=== PATIENT | male | born 1950 | race Asian ===

== ENCOUNTER → 2017-01-13 | Outpatient (CLI) | payer MEDICARE, BC ==
[~2017-01-13] MED LIST: ALBU8.5H3 INH; AMIO200T2 PO; ASPI-664 PO; LOSA50TA6 PO; METF500T4 PO; METO-407 PO; SERT100T PO; TENO300T2 PO
--- NOTE | 2017-01-14 08:38 | RADRPT ---
PROCEDURE: Right Upper Quadrant Ultrasound. CLINICAL INDICATION: CHRONIC HEP B TECHNIQUE: Multiple real-time images were acquired of the patient's right upper quadrant abdomen a nd retroperitoneum utilizing a high resolution transducer. COMPARISON: Abdominal ultrasound from 04/05/2015 FINDINGS: The liver measures 12.2 cm, and demonstrates normal echogenicity. The main portal vein is patent wit h proper directional flow. There is no intrahepatic biliary ductal dilatation. The extrahepatic comm on bile duct measures 6 mm. The gallbladder is without stones, wall thickening, or pericholecystic fluid. The visualized pancreas is unremarkable. The right kidney measures 8.5 cm and demonstrates normal echotexture. There is no right renal calcul us or hydronephrosis. The visualized abdominal aorta and IVC are grossly unremarkable. IMPRESSION: Unremarkable right upper quadrant abdominal ultrasound. No definite morphologic changes of cirrhosis are identified. The main portal vein is patent with pro per directional flow. RPTAT: EE Physician Annalisa Date Time Electronically viewed and signed by Physician Annalisa on 01/14/2017 08:38 /
== END | disposition home or self-care (01) ==
LOC: U/S 09:34
PROVIDERS: ATTEND Internal Medicine
DX: B18.1 Chronic viral hepatitis B without delta-agent (principal)
CPT/HCPCS: 76705

== ENCOUNTER 2017-03-19 17:03 | Emergency (ER) | END 2017-03-20 19:55 | disposition short-term general hospital (02) ==

== ENCOUNTER → 2018-01-30 | Outpatient (CLI) | END | disposition home or self-care (01) ==

== ENCOUNTER → 2018-06-05 | Outpatient (CLI) | payer MEDICARE, BC ==
[~2018-06-05] MED LIST changes: -ALBU8.5H3 INH; +AMIO100T4 PO; -AMIO200T2 PO; -ASPI-664 PO; +ASPI-817 PO; +LOSA100T15 PO; +LOSA50TA14 PO; -LOSA50TA6 PO; +METF500T24 PO; -METF500T4 PO; +METO-336 PO; -METO-407 PO; +OMEP20CA16 PO; -SERT100T PO; +TENO25TA PO; -TENO300T2 PO
== END | disposition home or self-care (01) ==
LOC: U/S 07:41
PROVIDERS: ATTEND Internal Medicine
DX: B18.1 Chronic viral hepatitis B without delta-agent (principal)
CPT/HCPCS: 76700

== ENCOUNTER 2018-08-22 04:18 | Emergency (ER) | payer MEDICARE, BC ==
[~2018-08-22] VITALS: Ht 160 cm; Wt 135.0 kg
[2018-08-22 04:21] VITALS: Ht 160 cm; Wt 135.0 kg
[2018-08-22] MEDS ORDERED: ONDANSETRON 4 MG INJ IV STA (04:34)
--- NOTE | 2018-08-22 05:13 | ERD ---
ER Documentation Chief Complaint Chief Complaint high BP; took BP meds; N/V; dizziness HPI This is a 68-year-old male who presents for evaluation of hypertension. His took his blood pressure at home which was in the 200s, patient endorses some lightheadedness, associated with nausea, he did not actually have any vomiting. He denies chest pain or shortness of breath, he has had no recent falls, he denies syncope, he has had no confusion. ROS All systems reviewed and are negative except as per history of present illness. Medications Home Meds Reported Medications Aspirin* (Aspirin* EC) 81 Mg Tablet.dr, 81 MG PO DAILY, TAB 03/19/17 Amiodarone Hcl* (Amiodarone Hcl*) 100 Mg Tablet, 100 MG PO DAILY, #30 TAB 03/19/17 Metoprolol Succinate* (Toprol XL*) 100 Mg Tab.sr.24h, 100 MG PO BID, #30 TAB 03/19/17 Metformin Hcl* (Metformin Hcl*) 500 Mg Tablet, 500 MG PO WITH BREAKFAST, #30 TAB 03/19/17 Tenofovir Alafenamide Fumarate (Vemlidy) 25 Mg Tablet, 25 MG PO DAILY, TAB 03/19/17 Omeprazole* (Omeprazole*) 20 Mg Capsule.dr, 20 MG PO DAILY, #30 CAP 03/19/17 Losartan Potassium* (Losartan Potassium*) 100 Mg Tablet, 100 MG PO NEEDED, TAB 03/19/17 Losartan Potassium* (Losartan Potassium*) 50 Mg Tablet, 50 MG PO BID, TAB 03/19/17 Allergies Allergies: Coded Allergies: No Known Drug Allergies (Verified Allergy, Unknown, 03/19/17) PMhx/Soc History of Surgery: Yes Anesthesia Reaction: No Hx Neurological Disorder: No Hx Respiratory Disorders: Yes (asthma) Hx Cardiac Disorders: Yes ([place] April 2012, AICD, HTN) Hx Psychiatric Problems: Yes (depression) Hx Miscellaneous Medical Probl: No Hx Alcohol Use: No Hx Substance Use: No Hx Tobacco Use: No Smoking Status: Never smoker Physical Exam Vitals Vital Signs Date Temp Pulse Resp B/P (MAP) Pulse Ox O2 O2 Flow FiO2 Time Delivery Rate 08/22/18 60 14 153/93 97 Room Air 05:23 (113) 08/22/18 98.0 60 18 196/98 98 04:21 (130) Physical Exam Const: No acute distress Head: Atraumatic Eyes: Normal Conjunctiva ENT: Normal External Ears, Nose and Mouth. Neck: Full range of motion. No meningismus. Resp: Clear to auscultation bilaterally Cardio: Regular rate and rhythm, no murmurs Abd: Soft, non tender, non distended, no rebound or guarding. Normal bowel sounds Skin: No petechiae or rashes Back: No midline or flank tenderness Ext: No cyanosis, or edema Neur: Neuro: M/S: Alert and oriented Face: EOMI, face and pharynx with normal sensation and function Motor: Normal strength throughout Sensation: Normal sensation throughout Speech: Normal Cerebel: Normal coordination Normal gait Normal finger to nose Psych: Normal Mood and Affect Result Diagram: 08/22/1844408/22/18444 Results 24 hrs Laboratory Tests Test 08/22/18 04:45 White Blood Count 7.5 10^3/ul Red Blood Count 4.82 10^6/ul Hemoglobin 15.0 g/dl Hematocrit 43.8 % Mean Corpuscular Volume 90.9 fl Mean Corpuscular Hemoglobin 31.1 pg Mean Corpuscular Hemoglobin Concent 34.2 g/dl Red Cell Distribution Width 14.0 % Platelet Count 187 10^3/UL Mean Platelet Volume 9.6 fl Immature Granulocytes % 0.500 % Neutrophils % 58.1 % Lymphocytes % 23.7 % Monocytes % 11.4 % Eosinophils % 5.6 % Basophils % 0.7 % Nucleated Red Blood Cells % 0.0 /100WBC Immature Granulocytes # 0.040 10^3/ul Neutrophils # 4.4 10^3/ul Lymphocytes # 1.8 10^3/ul Monocytes # 0.9 10^3/ul Eosinophils # 0.4 10^3/ul Basophils # 0.1 10^3/ul Nucleated Red Blood Cells # 0.0 10^3/ul Prothrombin Time 13.0 Sec Prothrombin Time Ratio 1.0 INR International Normalized Ratio 0.97 Sodium Level 142 mmol/L Potassium Level 3.6 mmol/L Chloride Level 105 mmol/L Carbon Dioxide Level 26 mmol/L Anion Gap 11 Blood Urea Nitrogen 17 mg/dl Creatinine 1.27 mg/dl Est Glomerular Filtrat Rate mL/min 56 mL/min Glucose Level 130 mg/dl Calcium Level 9.4 mg/dl Total Bilirubin 1.0 mg/dl Direct Bilirubin 0.00 mg/dl Indirect Bilirubin 1.0 mg/dl Aspartate Amino Transf (AST/SGOT) 95 IU/L Alanine Aminotransferase (ALT/SGPT) 139 IU/L Alkaline Phosphatase 99 IU/L Troponin I Pending Total Protein 8.0 g/dl Albumin 4.6 g/dl Globulin 3.40 g/dl Albumin/Globulin Ratio 1.35 Current Medications Medications Dose Sig/Josefina Start Time Status Last (Trade) Ordered Route PRN Stop Time Admin Dose Reason Admin Ondansetron 4 mg ONCE STAT 08/22/18 DC 08/22/18 HCl (Zofran IV 04:34 04:47 Inj) 08/22/18 04:35 Procedures/MDM This 68-year-old male who presents for evaluation of what is essentially asymptomatic hypertension. Patient had no confusion no intraoral mental state, and no signs or symptoms of encephalopathy. He is well-appearing and nontoxic and had a normal neuro exam, he had no chest pain or shortness of breath. He had vague symptoms of nausea and dizziness, however his neuro exam is normal, and at this point I do not suspect a central cause for his dizziness, and he has no signs or symptoms of hypertensive emergency. At discharge patient was in no distress. EKG: Rate/Rhythm: Ventricular paced QRS, ST, T-waves: No changes consistent w/ acute ischemia Impression: No evidence of ischemia or arrhythmia Departure Diagnosis: Primary Impression: Hypertension Hypertension type: unspecified Qualified Codes: I10 - Essential (primary) hypertension Condition: Stable ANGELO ESPINOZA MD Aug 22, 2018 05:13
[2018-08-22 06:57] VITALS: BP 158/93; PULSE 60; RESP 16
== END 2018-08-22 06:58 | disposition home or self-care (01) ==
LOC: E/R 04:18
DX: I10 Essential (primary) hypertension (principal); J45.909 Unspecified asthma, uncomplicated; I25.2 Old myocardial infarction; R06.02 Shortness of breath; Z79.82 Long term (current) use of aspirin
CPT/HCPCS: 71045; 80053; 84484; 85025; 85610; 93005; 96374; 99285; J2405

== ENCOUNTER → 2018-12-22 | Outpatient (CLI) | payer MEDICARE, BC ==
[~2018-12-22] MED LIST changes: -OMEP20CA16 PO; +OMEP20CA17 PO
== END | disposition home or self-care (01) ==
LOC: U/S 16:29
PROVIDERS: ATTEND Internal Medicine Gastroenterology
DX: B18.1 Chronic viral hepatitis B without delta-agent (principal)
CPT/HCPCS: 76700